=== PATIENT | male | born 1950 | race Hispanic/Latino ===

== ENCOUNTER 2022-10-25 08:09 | Outpatient (CLI) | payer MEDICARE ==
[2022-10-25 09:49] LABS: Anion Gap 14 mmol/L (10-20); BUN (Urea Nitrogen) 27 mg/dL (8.4-25.7); Calc. Creatinine Clearance 0 mL/min (70-130); Carbon Dioxide 26 mmol/L (23-31); Chloride 103 mmol/L (98-107); Estimated GFR 69; Glucose 109 mg/dL (83-110); Potassium 5.3 mmol/L (3.5-5.1); Sodium 138 mmol/L (136-145)
[2022-10-25 09:53] LABS: Prothrombin Time 10.6 sec (9.5-12.1)
[2022-10-25 10:20] LABS: #Eosinphils 0.4 10x3/uL (0.0-0.5); #Monocytes 0.4 10x3/uL (0.0-1.1); %Basophils 0.6 % (0.0-2.0); %Eosinophils 8.8 % (0.0-6.0); %Lymphocytes 20.8 % (18.0-47.0); %Monocytes 8.6 % (0.0-10.0); Hemoglobin 15.3 g/dL (13.5-17.5); Mean Corpuscular HGB CONC 33.4 g/dL (32.0-36.0); Mean Corpuscular Volume 86.9 fl (81.2-95.1); RBC Distribution Width 12.1 % (11.5-14.5); Red Blood Cell (RBC) Count 5.27 10x6/uL (4.32-5.72); White Blood Cell (WBC) Count 4.9 10x3/uL (3.5-10.5)
[2022-10-25 10:22] LABS: Platelet Clumps MARKED
[2022-10-25 10:23] LABS: Platelet Morphology Comment PLT clumps seen-LOW
[2022-10-25 10:24] LABS: RBC Morphology Normal
== END 2022-10-25 08:10 | disposition home or self-care (01) ==
LOC: LABBT 08:09
PROVIDERS: ATTEND Orthopaedic Surgery
DX: Z01.818 Encounter for other preprocedural examination (principal); M17.11 Unilateral primary osteoarthritis, right knee
CPT/HCPCS: 80048; 85025; 85610; 87081; 93005; 93010

== ENCOUNTER 2022-10-30 06:47 | Observation (INO) | payer OTHER, MEDICAID ==
[2022-10-29 14:08] VITALS: BMI 33.1
[2022-10-30] MEDS ORDERED: Tranexamic Acid 1,000 MG/10 ML VIAL ONE ×2 (07:39→13:53)
[2022-10-30] MEDS ORDERED: Sodium Chloride 0.9% 100 ML ONE ×2 (07:39→09:38)
[2022-10-30] MEDS ORDERED: Vancomycin 1.5 GRAM/300 ML BAG 1.5 GM in Premix Bag 1 BAG IVPB SCH ×2 (07:45→21:00)
[2022-10-30 08:14] LABS: SARS-CoV-2 NAA Rapid Test Not Detected (NotDetected)
[2022-10-30] MEDS ORDERED: Fentanyl 100 MCG/2 ML VIAL ONE ×2 (08:22→17:24)
[2022-10-30] MEDS ORDERED: Ropivacaine 0.5% HCl/PF (150 MG/30 ML VIAL) ONE (08:22)
[2022-10-30] MEDS ORDERED: Midazolam HCl 2 mg/2 ml Vial ONE (08:22)
[2022-10-30 08:55] LABS: Platelet Count 171 10x3/uL (130-400)
[2022-10-30] MEDS ORDERED: Bupivacaine/Epinephrine 0.25% 30 ML VIAL ONE (09:19)
[2022-10-30] MEDS ORDERED: Fentanyl 250 MCG/5 ML VIAL ONE (09:27)
[2022-10-30] MEDS ORDERED: CEFAZOLIN 2 GM VIAL ONE (09:38)
[2022-10-30] MEDS ORDERED: Ondansetron PF 4 MG/2 ML Vial ONE (09:56)
[2022-10-30] MEDS ORDERED: PROPOFOL 200 MG/20 ML VIAL ONE (09:56)
[2022-10-30] MEDS ORDERED: Dexamethasone 20 MG/5 ML VIAL ONE (09:56)
[2022-10-30] MEDS ORDERED: Promethazine HCl 25 MG/ML VIAL IVPB PRN (11:41)
[2022-10-30] MEDS ORDERED: Ondansetron HCl/PF 4 MG/2 ML Vial IVP PRN (11:41)
[2022-10-30] MEDS ORDERED: HYDROmorphone 2 MG/ML VIAL SLOW IVP PRN (11:41)
[2022-10-30] MEDS ORDERED: Promethazine HCl 25 MG/ML VIAL IM PRN ×2 (11:41→12:00)
[2022-10-30] MEDS ORDERED: HYDROmorphone 2 MG/ML VIAL ONE (11:45)
[2022-10-30] MEDS ORDERED: Fentanyl 100 MCG/2 ML VIAL IV PRN (11:55)
[2022-10-30] MEDS ORDERED: Zolpidem Tartrate 5 MG TAB PO PRN (12:00)
[2022-10-30] MEDS ORDERED: HYDROcodone/Acetaminophen 10/325 mg Tablet PO PRN ×2 (12:00)
[2022-10-30] MEDS ORDERED: Ropivacaine 0.2% 550 ML 550 ML NERVE BLCK SCH (12:00)
[2022-10-30] MEDS ORDERED: Ketorolac Tromethamine 30 MG/ML VIAL IVP PRN (12:00)
[2022-10-30] MEDS ORDERED: traMADol HCl 50 MG TAB PO PRN ×2 (12:00)
[2022-10-30] MEDS ORDERED: Ondansetron PF 4 MG/2 ML Vial IVP PRN (12:00)
[2022-10-30] MEDS ORDERED: Meperidine HCl/PF 25 MG/ML VIAL ONE (12:01)
[2022-10-30] MEDS ORDERED: Acetaminophen 325 MG TAB PO PRN (13:43)
[2022-10-30] MEDS ORDERED: diphenhydrAMINE 25 MG CAP PO PRN (13:43)
[2022-10-30] MEDS: Sodium Chloride 0.9% 1,000 ML IV SCH (18:00)
[2022-10-30] MEDS: CEFAZOLIN 2 GM in Sodium Chloride 0.9% 100 ML IVPB SCH (18:29)
[2022-10-30] MEDS: Aspirin 81 mg Enteric Coated Tablet PO SCH (21:26)
[2022-10-31] MEDS: Sodium Chloride 0.9% 1,000 ML IV SCH ×2 (00:19→09:06)
[2022-10-31] MEDS: CEFAZOLIN 2 GM in Sodium Chloride 0.9% 100 ML IVPB SCH (02:30)
[2022-10-31 05:33] LABS: Hemoglobin 13.5 g/dL (14.0-18.0); Mean Corpuscular HGB CONC 33.1 g/dL (32.0-36.0); Mean Corpuscular Hemoglobin 29.8 pg (27.0-31.0); Mean Platelet Volume 10.8 fL (7.4-10.4); Platelet Count 139 10x3/uL (130-400); RBC Distribution Width 11.4 % (11.5-14.5); Red Blood Cell (RBC) Count 4.52 mill/uL (4.70-6.10)
[2022-10-31] MEDS ORDERED: Multivitamin W/ Minerals 1 TAB PO SCH (09:00)
[2022-10-31] MEDS ORDERED: Ferrous Gluconate 324 MG TAB PO SCH (09:00)
[2022-10-31] MEDS ORDERED: Senokot S 8.6-50 MG TAB PO SCH (09:00)
[2022-10-31] MEDS ORDERED: Lisinopril/Hydrochlorothiazide 20/25 mg Tablet PO SCH (09:00)
[2022-10-31] MEDS ORDERED: Tamsulosin HCl 0.4 MG CAP PO SCH (09:00)
[2022-10-31] MEDS: Aspirin 81 mg Enteric Coated Tablet PO SCH (09:02)
[2022-10-31 13:31] VITALS: BP 156/83; TEMP 98
== END 2022-10-31 14:20 | disposition home or self-care (01) ==
LOC: SDC 06:47 → SJJU 13:43
PROVIDERS: ADMIT Orthopaedic Surgery; ATTEND Orthopaedic Surgery
PROC: 0SRC0J9 Replacement of Right Knee Joint with Synthetic Substitute, Cemented, Open Approach (ICD-10-PCS; principal; 2022-10-30)
DX: M17.0 Bilateral primary osteoarthritis of knee (principal); M21.161 Varus deformity, not elsewhere classified, right knee; I10 Essential (primary) hypertension; N40.1 Benign prostatic hyperplasia with lower urinary tract symptoms; R39.12 Poor urinary stream; Z79.899 Other long term (current) drug therapy; Z20.822 Contact with and (suspected) exposure to COVID-19
CPT/HCPCS: 20985; 27447; 73560; 85027; 85049; 96365; 96366; 96375; 96376; 97110 ×2; 97116 ×2; 97530; A4306; C1713; C1776; G0378 ×2; J3370; U0002; 36415; J1100; J1170; J1885; J2175; J2250; J2405; J2704; J2795; J3010; J3490; J7050